=== PATIENT | female | born 1980 | race Caucasian/White ===

== ENCOUNTER → 2020-10-23 | Outpatient (CLI) | payer OTHER ==
--- NOTE | 2020-10-23 14:23 | KCIC ---
EXAM: Right knee, 3 views. HISTORY: Pain. COMPARISON: None. FINDINGS: 3 views of the right knee are obtained. There is no fracture, dislocation or subluxation. T here is no joint effusion. IMPRESSION: No acute osseous finding. Electronically signed by: Katrina Galarza MD (10/23/2020 2:21 PM) [id number]
== END ==
LOC: KCIC 13:50
PROVIDERS: ATTEND Family Medicine
DX: M25.561 Pain in right knee (principal); M79.604 Pain in right leg; G89.29 Other chronic pain; R05 Cough
CPT/HCPCS: 73562